=== PATIENT | female | born 1950 | race Caucasian/White ===

== ENCOUNTER 2023-04-18 19:59 | Outpatient (CLI) | payer MEDICARE, BC, SELFPAY | END 2023-04-18 20:00 | disposition home or self-care (01) | LOC: AMB 04-21 01:08 | PROVIDERS: PCP Family Medicine; Visit Provider Family Medicine | DX: S81.812A Laceration without foreign body, left lower leg, initial encounter (principal); W26.8XXA Contact with other sharp object(s), not elsewhere classified, initial encounter; Y93.89 Activity, other specified; Y92.002 Bathroom of unspecified non-institutional (private) residence as the place of occurrence of the external cause | CPT/HCPCS: A0425; A0429 ==

== ENCOUNTER 2023-04-18 20:29 | Emergency (ER) | payer MEDICARE, BC, SELFPAY ==
[2023-04-18 20:30] VITALS: BP 131/89; PULSE 64; RESP 16; TEMP 36.8; O2SAT 97; BMI 31.2
--- NOTE | 2023-04-18 20:45 | ED_ITS ---
HPI - Wound/Laceration General Time Seen by Provider: 20:45 Date Seen: 04/18/23 Chief Complaint: Laceration/Wound Stated Complaint: Varicose vein lac Time Seen by Provider: 04/18/23 20:45 Source: patient, EMS and old records reviewed Mode of arrival: EMS Limitations: no limitations History of Present Illness HPI narrative: 72-year-old female who is on aspirin comes in after cutting herself shaving. Large amount of bleeding reported, tourniquets x2 placed by EMS. Patient does not report any chest pain or shortness of breath, no other complaints. Related Data Allergies Allergy/AdvReac Type Severity Reaction Status Date / Time No Known Drug Allergies Allergy Verified 04/18/23 20:46 PFSH PFSH Social History Smoking Status: Never smoker Do you use any of these nicotine containing products: None Second hand tobacco smoke exposure: No How often do you have a drink containing alcohol: 2-3 times a week How many standard drinks containing alcohol do you have on a typical day: 1 or 2 How often do you have six or more drinks on one occasion: Never AUDIT-C Alcohol total score: 3 Non-prescribed substance use: denies use service: No Exam Narrative: Exam Narrative: General: Well-developed and well-nourished, no acute distress Head: Atraumatic and normocephalic Eyes: Pupils are equal reactive, extraocular motions intact, conjunctiva clear ENT: External nose and ears are normal, posterior pharynx without erythema or exudate Neck: No midline cervical tenderness, full spontaneous range of motion the neck, trachea midline, no adenopathy Heart: Regular rate and rhythm no murmurs or thrills Lungs: Clear to auscultation bilaterally without wheezes or crackles Abdomen: Soft, nontender, nondistended with active bowel sounds Musculoskeletal: Tourniquets at the left groin and left medial thigh, left leg is purple and mildly swollen. Dressing of the left knee area. This was removed and constant jet of blood was observed. Neurologic: Awake, alert, and oriented x3, no gross focal neurologic deficits, cranial nerves intact as tested Psych: Mood and affect are appropriate Skin: No rashes Const: Vital Signs, click to edit/add: Vital Signs - 24 hr 04/18/23 20:30 Temperature 98.3 F Pulse Rate [Right Pulse Oximeter] 64 Respiratory Rate 16 Blood Pressure [Ri ght Upper Arm] 131/89 Pulse Oximetry 97 Oxygen Delivery Ne thod Room Air Course Course Hospital Course: Patient seen examined, prior records are reviewed. Patient presents today with bleeding from a varicose vein. Tourniquets x2 were placed by EMS, left leg is purple with diminished sensation. Area of active bleeding was found which is spurting constant and not pulsatile, likely venous from a traumatized varicose vein. Direct pressure was placed on this area, tourniquets x2 were removed. The leg became pink with sensation intact distally and dorsalis pedis pulse intact. Direct pressure was removed and there is slow venous ooze from a 1 mm avulsed varicose vein. Pressure proximal to this on the skin achieved hemostasis. The area was cauterized with silver nitrate and bleeding stopped. Hemoglobin will be ordered, will observe in the emergency department and anticipate placement of hemostatic dressing with or without hemostatic suture. Reevaluation(s) Time of Reevaluation #1: 21:00 Reevaluation #1: Patient rechecked, still good hemostasis. Time of Reevaluation #2: 21:35 Reevaluation #2: Labs independently interpreted by me with hemoglobin of 12.3. Patient remains stable with no further bleeding. Bleeding was controlled with silver nitrate, however due to concern for rebleed, two 5-0 Ethilon [id number] sutures were placed, hemostasis was maintained. Hemostatic dressing was placed and patient is stable for discharge. Vital Signs Vital signs: Initial Vital Signs Temperature 98.3 F 04/18/23 20:30 Temperature Source Temporal Artery Scan 04/18/23 20:30 Pulse Rate 64 04/18/23 20:30 Pulse Rhythm Regular 04/18/23 20:30 Pulse Strength 3+ Normal 04/18/23 20:30 Respiratory Rate 16 04/18/23 20:30 Blood Pressure 131/89 04/18/23 20:30 Blood Pressure Mean 103 04/18/23 20:30 Blood Pressure Position Supine 04/18/23 20:30 Pulse Oximetry 97 04/18/23 20:30 Oxygen Delivery Method Room Air 04/18/23 20:30 Vital Signs Temperature 98.3 F 04/18/23 20:30 Pulse Rate 64 04/18/23 20:30 Respiratory Rate 16 04/18/23 20:30 Blood Pressure 131/89 04/18/23 20:30 Pulse Oximetry 97 04/18/23 20:30 Oxygen Delivery Method Room Air 04/18/23 20:30 Temperature 98.3 F 04/18/23 20:30 Pulse Rate 64 04/18/23 20:30 Respiratory Rate 16 04/18/23 20:30 Blood Pressure 131/89 04/18/23 20:30 Pulse Oximetry 97 04/18/23 20:30 Oxygen Delivery Method Room Air 04/18/23 20:30 MDM - Wound/Laceration Lab Data Labs: Lab Results 04/18/23 Range/Units 20:51 Hgb 12.3 (12.0-16.0) gm/dL Discharge Plan Discharge Clinical Impression: Bleeding from varicose veins of left lower extremity Patient Disposition: Home, Self-Care Condition: Stable Additional Instructions: Keep current dressing on for 24 hours. After 24 hours you may remove this and he has a Band-Aid. Sutures should be left in place for 1 week. Your primary care doctor can take these out in about a week. Do not submerge the area until the stitches are removed. You may gently wash the area starting after 24 hours. Do not scrub, do not submerge. Wash gently with soap and water. Apply dressing as desired. A Band-Aid is usually sufficient. If the area start oozing or bleeding, applied direct pressure with your finger for 10 minutes without peaking, elevate the knee above the level of the hips if you are able. Activity Level: Activity as Tolerated Follow Up/Referrals: Dorothy David MD [Primary Care Provider] - Stand Alone [facility]: [facility] Inst[facility]
[2023-04-18 21:07] VITALS: PULSE 63; O2SAT 94
[2023-04-18 21:09] VITALS: BP 138/66; PULSE 63; O2SAT 95
[2023-04-18 21:09] LABS: Hemoglobin* 12.3 gm/dL (12.0-16.0)
[2023-04-18 21:15] VITALS: PULSE 64; O2SAT 96
[2023-04-18 21:30] VITALS: PULSE 68; O2SAT 96
== END 2023-04-18 21:50 | disposition home or self-care (01) ==
PROVIDERS: Emergency Provider Family Medicine; PCP Family Medicine
DX: S81.812A Laceration without foreign body, left lower leg, initial encounter (principal); W26.9XXA Contact with unspecified sharp object(s), initial encounter
CPT/HCPCS: 12001; 36415; 85018; 99283; 99284

== ENCOUNTER 2023-07-25 08:45 | Outpatient (RCR) | payer MEDICARE, BC, SELFPAY | END 2023-07-25 09:42 | disposition home or self-care (01) | PROVIDERS: PCP Family Medicine; Visit Provider Family Medicine | DX: M16.12 Unilateral primary osteoarthritis, left hip (principal); M25.552 Pain in left hip; M62.81 Muscle weakness (generalized); R26.9 Unspecified abnormalities of gait and mobility; Z51.89 Encounter for other specified aftercare | CPT/HCPCS: 97110; 97161 ==

== ENCOUNTER 2024-01-05 14:00 | Outpatient (RCR) | payer MEDICARE, BC, SELFPAY | END 2024-05-04 23:59 | disposition home or self-care (01) | PROVIDERS: PCP Family Medicine; Visit Provider Family Medicine | DX: M79.604 Pain in right leg (principal); M47.817 Spondylosis without myelopathy or radiculopathy, lumbosacral region; Z51.89 Encounter for other specified aftercare; M79.605 Pain in left leg | CPT/HCPCS: 97110; 97140; 97162 ==

== ENCOUNTER 2024-06-15 14:45 | Outpatient (RCR) | payer MEDICARE, BC, SELFPAY | END 2024-10-13 23:59 | disposition home or self-care (01) | PROVIDERS: PCP Family Medicine; Visit Provider Family Medicine | DX: M25.561 Pain in right knee (principal); M54.2 Cervicalgia; G89.29 Other chronic pain; Z51.89 Encounter for other specified aftercare | CPT/HCPCS: 97110; 97140; 97163 ==

== ENCOUNTER 2025-05-23 08:15 | Outpatient (RCR) | payer MEDICARE, BC, SELFPAY | END 2025-06-20 14:37 | disposition home or self-care (01) | PROVIDERS: PCP Family Medicine; Visit Provider Family Medicine | DX: M79.604 Pain in right leg (principal); M79.605 Pain in left leg; Z51.89 Encounter for other specified aftercare | CPT/HCPCS: 97110; 97161 ==